=== PATIENT | male | born 1955 | race Two or more races ===

== ENCOUNTER 2017-09-11 11:11 | Outpatient (CLI) | payer OTHER | END 2017-09-11 16:27 | disposition home or self-care (01) | LOC: SONOGRAMA 11:11 | DX: M25.511 Pain in right shoulder (principal) ==

== ENCOUNTER 2019-01-14 14:58 | Outpatient (CLI) | payer OTHER | END 2019-01-14 15:15 | disposition home or self-care (01) | LOC: RAD 501 14:58 | DX: M17.0 Bilateral primary osteoarthritis of knee (principal) ==

== ENCOUNTER 2024-08-15 10:12 | Outpatient (CLI) | payer OTHER | END 2024-08-15 10:17 | disposition home or self-care (01) | LOC: RAD 10:12 | PROVIDERS: ATTEND Specialist | DX: I10 Essential (primary) hypertension (principal) ==